=== PATIENT | female | born 1985 | race Hispanic/Latino ===

== ENCOUNTER 2016-06-22 08:07 | Emergency (ER) | payer OTHER ==
[~2016-06-22] VITALS: Ht 152.4 cm; Wt 64.4 kg
[~2016-06-22 08:07] MED LIST: BENZONATATE200 M1 PO; CYCLOBENZAPRINE5 M2 PO; DELTASONE20 MG PO; GUAIFENESIN-COD10 ML PO; LO LOESTRIN FE1 EACH PO; MOBIC15 M1 PO; PERCOCET 325 MG1 TA2 PO; PROVENTIL HFA6.7 GM INH; TRAMADOL HCL50 M1 PO; TRAMADOL50 MG PO; ZITHROMAX250 M2 PO; ZOFRAN ODT4 MG PO
--- NOTE | 2016-06-22 08:46 | ED GI/GU/ABDOMINAL COMPLAINT ---
History of Present Illness General Chief Complaint: Nausea, Vomiting, Diarrhea Stated Complaint: VOMITING Source: patient Exam Limitations: no limitations Vital Signs & Intake/Output Vital Signs & Intake/Output Vital Signs Date Time Temp Pulse Resp B/P Pulse O2 O2 Flow FiO2 Ox Delivery Rate 06/22 1544 98.0 78 16 86/54 100 Room Air 06/22 1422 88 16 90/54 98 Room Air 06/22 1328 82 16 86/44 97 Room Air 06/22 1320 98.1 93 16 82/52 99 Room Air 06/22 1211 90 16 96/58 99 Room Air 06/22 1023 98.0 88 18 89/54 99 Room Air 06/22 0817 97.6 118 20 111/74 99 Room Air Room Air Allergies Coded Allergies: NO KNOWN ALLERGIES (N) (01/10/12) Reconcile Medications Albuterol Sulfate (Proventil Hfa) 6.7 GM HFA.AER.AD 2 PUF INH Q4 sob/cough Azithromycin (Zithromax) 250 MG TABLET 1 DP PO AD bronchitis 2 the first day followed by 1 for days 2-5 Benzonatate 200 MG CAPSULE 1 CAP PO TIDPRN COUGH Hydrocodone/Acetaminophen ([place] 5-325 Tablet) 5 MG-325 MG TABLET 1-2 TAB PO Q4-6 PRN PRN PAIN Norethindrone-E.estradiol-Iron (Lo Loestrin Fe 1-10 Tablet) 1 EACH TABLET 1 TAB PO DAILY BC (Reported) Prednisone (Deltasone) 20 MG TABLET 1 TAB PO BID BRONCHITIS Prochlorperazine Maleate (Compazine) 10 MG TABLET 1 TAB PO BID PRN NAUSEA Robitussin AC (Guaifenesin-Codeine Syrup) 10 ML LIQUID 5-10 ML PO Q6P PRN COUGH Triage Note: PT TO ED WITH C/O "I HAD URINARY BURNING I WENT TO [place] AND THEY DIDN'T FIND ANYTHING, THEN I FOLLOWED UP WITH MY PMD AND I HAD BACTERIA IN THE URINE, PUT ON ANTIBIOTIC X 3 DAYS, THE PAIN GOT BETTER, NOW THE PAIN IS TO LEFT BACK WHEN I BREATHE AND I'M SORE FROM THROWING UP". Triage Nurses Notes Reviewed? yes ? N Is pt currently ? No Onset: Gradual Duration: worse persistent since (2 DAYS) Timing: recent history Quality/Severity: cramping, sharpness Location: left lower quadrant Radiation: flank Activities at Onset: none Prior Abdominal Problems: similar symptoms Past Sexual History: Unobtainable at this time HPI: Patient is a 31-year-old female presenting to the emergency department with chief complaint of left lower quadrant pain that thing going on intermittently for the past week or 2. Worse the past 2 days. She was seen and evaluated at another facility with the same pain, they did a transabdominal ultrasound and blood work and told her everything looked well and she should follow up with her GI doctor. Patient reports a left-sided the pain worsen. Positive nausea with vomiting. She reports she cannot keep anything down. Denies diarrhea. No blood in the vomit. Positive tactile fevers and chills. Just reports urinary frequency urgency and dysuria. She was put on antibiotics for 3 days and follow -up with her primary care physician. Denies taking anything for pain at home. (NENA DOWNEY) Past History Travel History Traveled to [place] past 21 day No Medical History Any Pertinent Medical History? 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 No (NENA DOWNEY) Review of Systems Review of Systems Constitutional: Reports: chills, fever, malaise. Comments Review of systems: See HPI, All other systems negative. Constitutional, weight loss HEENT: No visual changes no sore throat no congestion Cardiovascular: No chest pain ,palpitation , orthopnea or ankle swelling Skin, no jaundice no rashes Respiratory: No dyspnea cough sputum or hemoptysis GI: No diarrhea : Positive dysuria, denies hematuria Muscle skeletal: no back pain, no neck pain, Neurologic: No numbness no confusion Psych: No stress anxiety or depression,. Heme/endocrine: No bruising no bleeding no polyuria or polydipsia Immunology: No splenectomy or history of AIDS (NENA DOWNEY) Physical Exam Physical Exam General Appearance: well developed/nourished, alert, awake, mild distress Gastrointestinal: normal bowel sounds, soft, tenderness Comments: Well-developed well-nourished person in mild distress HEENT: Pupils equally round and reactive to light and accommodation. Nose is atraumatic. Neck: Normal inspection Back: Nontender, no CVA tenderness. Full range of motion Cardiovascular: Regular rate and rhythms no murmurs rubs or gallops, normal JVP Respiratory: Chest nontender. No respiratory distress.breath sounds clear to auscultation bilaterally Abdomen: Soft, tender to palpation in the left lower quadrant, left suprapubic pain, nondistended, no appreciable organomegaly. Normal bowel sounds. No ascites Extremity: No edema Neuro: Alert oriented x3 Skin: No appreciable rash on exposed skin, skin is warm and dry. Psych: Mood and affect is normal, memory and judgment is normal. Core Measures ACS in differential dx? No Severe Sepsis Present: No Septic Shock Present: No (MAX GRACIA,NENA) Progress Differential Diagnosis: UTI/pyelo, KIDNEY STONE, PYELONEPHRITIS, HYDRONEPHROSIS, OVARIAN TORSION, OVARIAN CYSTS, FIBROIDS, DIVERTICULITIS Plan of Care: Orders Procedure Date/time Status Regular Diet 06/22 D Active MISTAKE 06/22 1548 Active RAPID VIRAL INFLUENZA A 06/22 1548 Complete THROAT CULTURE W/QUICK STREP 06/22 1548 Active URINE 06/22 0844 Complete LIPASE 06/22 0844 Complete LACTIC ACID 06/22 0844 Complete COMPREHENSIVE METABOLIC PANEL 06/22 0844 Complete CBC WITHOUT DIFFERENTIAL 06/22 0844 Complete AMYLASE 06/22 0844 Complete URINALYSIS 06/22 0821 Complete Current Medications Sig/Tata Start time Last Medication Dose Stop Time Status Admin Sodium Chloride 1,000 ML BOLUS ONE 06/22 1600 CAN (Normal Saline 0.9%) 06/22 1659 Laboratory Tests 06/22/16 1144: Lactic Acid Cancelled 06/22/16 0900: Urine Test NEGATIVE 06/22/16 0900: Urinalysis LIGHT H, Urine Color YEL, Urine Clarity CLEAR, Urine pH 7.5, Ur Specific [place] 1.020, Urine Protein NEG, Urine Ketones NEG, Urine Nitrite NEG, Urine Bilirubin NEG, Urine Urobilinogen 0.2, Ur Leukocyte Esterase NEG, Ur Microscopic SEDIMENT EXAMINED, Urine RBC 5-10 H, Urine WBC RARE, Ur Epithelial Cells MANY H, Urine Mucus MOD H, Urine Hemoglobin SMALL H, Urine Glucose NEG 06/22/16 0853: Anion Gap 8, Estimated GFR > 60, BUN/Creatinine Ratio 25.0, Glucose 108 H, Lactic Acid 1.0, Calcium 8.8, Total Bilirubin 0.5, AST 34, ALT 56 H, Alkaline Phosphatase 73, Total Protein 7.4, Albumin 4.4, Globulin 3.0, Albumin/Globulin Ratio 1.5, Amylase 86, Lipase 91, CBC w Diff NO MAN DIFF REQ, RBC 4.01 L, MCV 89.4, MCH 30.8, RDW 12.8, MPV 7.5, Gran % 73.5, Lymphocytes % 8.2 L, Monocytes % 16.5 H, Eosinophils % 1.3, Basophils % 0.5, Absolute Granulocytes 3.6, Absolute Lymphocytes 0.4 L, Absolute Monocytes 0.8 H, Absolute Eosinophils 0.1 , Absolute Basophils 0, PUBS MCHC 34.4 Diagnostic Imaging: Viewed by Me: CT Scan. Discussed w/RAD: CT Scan. Radiology Impression: PATIENT: YONY MCRAE PRESENT AGE: 31 PATIENT ACCOUNT NO: [id number] : 86 LOCATION: [facility] ORDERING PHYSICIAN: NENA GRACIA SERVICE DATE: 06/22/16 EXAM TYPE: CAT - CT ABD & PELVIS W/O IV CONTRAS EXAMINATION: CT ABDOMEN AND PELVIS WITHOUT CONTRAST CLINICAL INFORMATION: Left flank pain. COMPARISON: 11/01/2014, 2012. Pelvic ultrasound 11/01/2014. TECHNIQUE: Multidetector volumetric imaging was performed from the superior aspect of the liver through the pubic symphysis. Sagittal and coronal reformatted images were obtained on the technologist's workstation. DLP: 238.94 mGy-cm. FINDINGS: LUNG BASES: The visualized lung bases are unremarkable. LIVER, GALLBLADDER, AND BILIARY TREE: The liver is normal in size, shape, and attenuation. No focal hepatic lesion or biliary ductal dilatation is present. The gallbladder is unremarkable with no evidence of radiopaque gallstones, gallbladder wall thickening, or obvious pericholecystic inflammatory changes. PANCREAS: Unremarkable. SPLEEN: Unremarkable. ADRENAL GLANDS: Unremarkable. KIDNEYS AND URETERS: The kidneys are normal in size, shape , and attenuation. No hydronephrosis, hydroureter, or calculi seen. No perinephric stranding. BLADDER: Partially distended which limits evaluation. No definite abnormalities. GASTROINTESTINAL TRACT: The small and large bowel are unremarkable. The appendix is not well seen. There are no inflammatory changes within the right lower quadrant. ABDOMINAL WALL: No significant hernia is appreciated. LYMPH NODES: Normal. VASCULAR: Unremarkable. PELVIC VISCERA: Coarse heterogeneous calcifications within the uterus. Lobulated enlarged appearance of the uterus. No pelvic free fluid. OSSEOUS STRUCTURES: Unremarkable. IMPRESSION: 1. No evidence of acute abdominal or pelvic abnormality. 2. Coarse calcifications within the uterus which is lobulated and enlarged consistent with previously described fibroids. DICTATED BY: LAM DAIGLE MD DATE/TIME DICTATED: 06/22/16956 SALESPERSON HANDBAGS:MISTY DATE/TIME TRANSCRIBED:06/22/16956 CONFIDENTIAL, DO NOT COPY WITHOUT APPROPRIATE AUTHORIZATION. <Electronically signed in Other Vendor System> SIGNED BY: LAM DAIGLE MD 06/22/16 1010, PATIENT: YONY MCRAE PRESENT AGE: 31 PATIENT ACCOUNT NO: [id number] : 86 LOCATION: [facility] ORDERING PHYSICIAN: NENA GRACIA SERVICE DATE: 06/22/16-1026 EXAM TYPE: US - US-TRANSVAGINAL EXAMINATION: US PELVIS COMPLETE CLINICAL INFORMATION: Left lower quadrant pain. Assess for ovarian torsion. COMPARISON: CT scan of the abdomen and pelvis obtained earlier 06/22/2016. Report of pelvic ultrasound 11/01/2014. TECHNIQUE: Transabdominal and transvaginal imaging of the pelvis was performed. FINDINGS: The uterus is of normal size and measures 7.8 x 4.5 x 5.4 cm. Is a volume of 98 mL. It is retroverted. A regular homogeneous endometrium is identified measuring 0.6 cm. The cervical length is 2.7 cm. FIBROIDS: There is one fibroid. Location: Exophytic and fundal. Size: It measures 8.2 x 5.2 x 6.9 cm increased from 5.2 x 4.1 x 5.0 cm. Fibroid characteristics: It is heterogenous. There are areas of increased echogenicity with posterior shadowing consistent with calcifications. Both ovaries are of normal size and echogenicity. The right measures 3.3 x 1.9 x 2.7 cm for a volume of 8.6 mL; previously measured 3.7 x 2.0 x 3.1 cm for a volume of 11.8 mL. There are multiple follicles. The left measures 3.3 x 1.6 x 2.0 cm for a volume of 5.5 mL, previously 2.4 x 1.7 x 1.7 cm for a volume of 3.7 mL. There are multiple follicles. Vascularity to both ovaries is normal. There is trace pelvic free fluid. IMPRESSION: 1. The study demonstrates an enlarging uterine fibroid with calcifications. 2. The ovaries appear normal with normal vascularity. 3. There is trace pelvic fluid. Initial ED EKG: none Comments: 06/22/2016 9:37:51 AM on arrival patient mild distress, vital stable. Patient does have significant tenderness to palpation in left lower quadrant, no rebound tenderness. 06/22/2016 10:37:21 AM and reevaluation patient was informed of all labs and imaging study. Patient still in significant pain. Patient is not hypotensive. Another liter of IV fluids initiated. We will send patient vaginal ultrasound to rule out ovarian torsion. 06/22/2016 1:11:31 PM patient was informed of ultrasound results. She'll follow- up with her GI. She'll be started on pain medication, nausea medication. Patient nontoxic. Vital stable stable. Blood pressure seems to be rising with IV fluids. 06/22/2016 4:27:34 PM orthostatics are negative. This and feeling well. Negative fluid negative strep. Patient will be discharged home. Discussed with he agrees with plan. (MAX GRACIA,NENA) Departure Departure Time of Disposition: 1311 Disposition: HOME OR SELF CARE Condition: Stable Clinical Impression Primary Impression: Abdominal pain Qualifiers: Abdominal location: left lower quadrant Qualified Code: R10.32 - Left lower quadrant pain Secondary Impressions: Hypotension Qualifiers: Hypotension type: unspecified hypotension type Qualified Code: I95.9 - Hypotension, unspecified Referrals: MARTHA CAMPOS APRN (PCP/Family) Additional Instructions: Follow-up with Dr. Crandall call to make an appointment. Increase fluids. Take Vicodin as prescribed for severe pain. Take Compazine as prescribed for nausea. Increase fluids. Departure Forms: Customer Survey General Discharge Information Prescriptions: Current Visit Scripts Hydrocodone/Acetaminophen ([place] 5-325 Tablet) 1-2 TAB PO Q4-6 PRN PRN PAIN #10 TAB Prochlorperazine Maleate (Compazine) 1 TAB PO BID PRN NAUSEA #10 TAB (NENA DOWNEY) PA/DRUM ATTENDANT Co-Sign Statement Statement: ED Attending supervision documentation- [] I saw and evaluated the patient. I have also reviewed all the pertinent lab results and diagnostic results. I agree with the findings and the plan of care as documented in the PA's/DRUM ATTENDANT's documentation. x I have reviewed the ED Record and agree with the PA's/DRUM ATTENDANT's documentation. [] Additions or exceptions (if any) to the PAs/DRUM ATTENDANT's note and plan are summarized below: [] (CHARLIE RIDLEY,RODGER)
[2016-06-22 09:02] LABS: ABSOLUTE BASOPHIL COUNT 0 /CUMM (0.0-0.2); ABSOLUTE EOSINOPHIL COUNT 0.1 /CUMM (0.0-0.7); ABSOLUTE GRANULOCYTE CT 3.6 /CUMM (1.4-6.5); ABSOLUTE LYMPH COUNT 0.4 /CUMM (1.2-3.4); ABSOLUTE MONOCYTE COUNT 0.8 /CUMM (0.10-0.60); BASOPHIL % 0.5 % (0.0-2.0); EOSINOPHIL % 1.3 % (0-5); GRANULOCYTE % 73.5 % (42.2-75.2); HEMATOCRIT 35.9 % (37-47); MEAN CORPUSCULAR HGB 30.8 PG (27.0-31.0); MEAN CORPUSCULAR HGB CONC 34.4 G/DL (33.0-37.0); MEAN CORPUSCULAR VOLUME 89.4 FL (81.0-99.0); MEAN PLATELET VOLUME 7.5 FL (7.4-10.4); PLATELET COUNT 307 /CUMM (130-400); RBC DISTRIBUTION WIDTH 12.8 % (11.5-14.5); RED BLOOD CELL CT 4.01 /CUMM (4.20-5.40); WHITE BLOOD CELL COUNT 4.9 /CUMM (4.8-10.8)
--- NOTE | 2016-06-22 10:10 | CT SCAN REPORT ---
EXAMINATION: CT ABDOMEN AND PELVIS WITHOUT CONTRAST CLINICAL INFORMATION: Left flank pain. COMPARISON: 11/01/2014, 02/20/2013. Pelvic ultrasound 11/01/2014. TECHNIQUE: Multidetector volumetric imaging was performed from the superior aspect of the liver through the pubic symphysis. Sagittal and coronal reformatted images were obtained on the technologist's workstation. DLP: 238.94 mGy-cm. FINDINGS: LUNG BASES: The visualized lung bases are unremarkable. LIVER, GALLBLADDER, AND BILIARY TREE: The liver is normal in size, shape, and attenuation. No focal hepatic lesion or biliary ductal dilatation is present. The gallbladder is unremarkable with no evidence of radiopaque gallstones, gallbladder wall thickening, or obvious pericholecystic inflammatory changes. PANCREAS: Unremarkable. SPLEEN: Unremarkable. ADRENAL GLANDS: Unremarkable. KIDNEYS AND URETERS: The kidneys are normal in size, shape, and attenuation. No hydronephrosis, hydroureter, or calculi seen. No perinephric stranding. BLADDER: Partially distended which limits evaluation. No definite abnormalities. GASTROINTESTINAL TRACT: The small and large bowel are unremarkable. The appendix is not well seen. There are no inflammatory changes within the right lower quadrant. ABDOMINAL WALL: No significant hernia is appreciated. LYMPH NODES: Normal. VASCULAR: Unremarkable. PELVIC VISCERA: Coarse heterogeneous calcifications within the uterus. Lobulated enlarged appearance of the uterus. No pelvic free fluid. OSSEOUS STRUCTURES: Unremarkable. IMPRESSION: 1. No evidence of acute abdominal or pelvic abnormality. 2. Coarse calcifications within the uterus which is lobulated and enlarged consistent with previously described fibroids.
--- NOTE | 2016-06-22 12:44 | ULTRASOUND REPORT ---
EXAMINATION: US PELVIS COMPLETE CLINICAL INFORMATION: Left lower quadrant pain. Assess for ovarian torsion. COMPARISON: CT scan of the abdomen and pelvis obtained earlier 06/22/2016. Report of pelvic ultrasound 11/01/2014. TECHNIQUE: Transabdominal and transvaginal imaging of the pelvis was performed. FINDINGS: The uterus is of normal size and measures 7.8 x 4.5 x 5.4 cm. Is a volume of 98 mL. It is retroverted. A regular homogeneous endometrium is identified measuring 0.6 cm. The cervical length is 2.7 cm. FIBROIDS: There is one fibroid. Location: Exophytic and fundal. Size: It measures 8.2 x 5.2 x 6.9 cm increased from 5.2 x 4.1 x 5.0 cm. Fibroid characteristics: It is heterogenous. There are areas of increased echogenicity with posterior shadowing consistent with calcifications. Both ovaries are of normal size and echogenicity. The right measures 3.3 x 1.9 x 2.7 cm for a volume of 8.6 mL; previously measured 3.7 x 2.0 x 3.1 cm for a volume of 11.8 mL. There are multiple follicles. The left measures 3.3 x 1.6 x 2.0 cm for a volume of 5.5 mL, previously 2.4 x 1.7 x 1.7 cm for a volume of 3.7 mL. There are multiple follicles. Vascularity to both ovaries is normal. There is trace pelvic free fluid. IMPRESSION: 1. The study demonstrates an enlarging uterine fibroid with calcifications. 2. The ovaries appear normal with normal vascularity. 3. There is trace pelvic fluid.
[2016-06-22] MEDS ORDERED: COMPAZINE10 M1 PO (13:14)
[2016-06-22] MEDS ORDERED: NORCO 5-325 TA1 EACH PO (13:14)
[2016-06-22 16:39] VITALS: BP 98/62
== END 2016-06-22 16:40 ==
LOC: ERH 08:07
PROVIDERS: Physician Assistant
DX: R10.32 Left lower quadrant pain (principal); I95.9 Hypotension, unspecified
CPT/HCPCS: 74176; 81001; 81025; 87804; 87804-59; 96361; 96365; 96375; J0131; J1885; J2405; J2550; J2765

== ENCOUNTER 2017-11-01 08:35 | Emergency (ER) | payer OTHER ==
[~2017-11-01] VITALS: Ht 152.4 cm; Wt 59.9 kg
[~2017-11-01 08:35] MED LIST changes: +COMPAZINE10 M1 PO; +NORCO 5-325 TA1 EACH PO
--- NOTE | 2017-11-01 09:16 | ED INFLUENZA/URI COMPLAINT ---
History of Present Illness General Chief Complaint: General Adult Stated Complaint: COUGHING UP BLOOD Source: patient, old records Exam Limitations: no limitations Vital Signs & Intake/Output Vital Signs & Intake/Output Vital Signs Date Time Temp Pulse Resp B/P B/P Pulse O2 O2 Flow FiO2 Mean Ox Delivery Rate 11/01 1049 98.4 76 18 110/88 98 Room Air 11/01 0950 96 11/01 0913 98 Room Air 11/01 0837 96.9 99 18 109/61 96 Room Air Allergies Coded Allergies: NO KNOWN ALLERGIES (N) (01/10/12) Reconcile Medications Albuterol Sulfate (Proair Hfa) 90 MCG HFA.AER.AD 2 PUF INH Q4-6 PRN PRN bronchospasm Amoxicillin 500 MG TABLET 1 TAB PO TID bronchitis Guaifenesin/Dextromethorphan (Robitussin Cough-Chest Dm Liq) 100 MG-5 MG/5 ML LIQUID 10 ML PO Q6P PRN cough Oxymetazoline HCl (Afrin) 0.05 % SPRAY 2 SPRAY NASB BID sinusitis Prednisone 20 MG TABLET 1 TAB PO BID bronchospasm Triage Note: 32 Y/O FEMALE C/O COUGH AND URI SYMPTOMS X 4 DAYS; STATES TODAY SHE "COUGH UP BLOOD AND I CAN TASTE THE BLOOD". AFEBRILE. Triage Nurses Notes Reviewed? yes Onset: Last week Duration: day(s):, constant, continues in ED Timing: recent history Severity: moderate Prior Episodes/Possible Cause: illness exposure No Modifying Factors: none Associated Symptoms: cough, sore throat LMP (ages 10-50): unknown : No Patient currently breastfeeds: No HPI: 4 days prior to admission patient complains of sore throat productive cough of yellow sputum with wheezing. Several hours prior to admission she continued with symptoms with blood in sputum. She denies fever chills chest pain shortness of breath headache dysuria rash bleeding nausea vomiting diarrhea abdominal pain. Past History Travel History Traveled to [place] past 21 day No Medical History Any Pertinent Medical History? 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 No Review of Systems Review of Systems Constitutional: Reports: no symptoms. EENTM: Reports: see HPI, throat pain. Respiratory: Reports: see HPI, cough, sputum production, wheezing. Cardiovascular: Reports: no symptoms. GI: Reports: no symptoms. Genitourinary: Reports: no symptoms. Musculoskeletal: Reports: no symptoms. Skin: Reports: no symptoms. Neurological/Psychological: Reports: no symptoms. Hematologic/Endocrine: Reports: no symptoms. Immunologic/Allergic: Reports: no symptoms. All Other Systems: Reviewed and Negative Physical Exam Physical Exam General Appearance: well developed/nourished, alert, awake, anxious, mild distress Head: atraumatic, normal appearance Eyes: Bilateral: normal appearance, PERRL, EOMI. Ears, Nose, Throat: normal ENT inspection, moist mucous membrane Neck: normal inspection, supple, full range of motion, trachea midline, lymphadenopathy (R), lymphadenopathy (L), no midline tenderness Respiratory: chest non-tender, no respiratory distress, wheezing Cardiovascular: regular rate/rhythm, normal peripheral pulses, norml femoral pulses equa Peripheral Pulses: 4+ carotid (R), 4+ carotid (L) Gastrointestinal: normal bowel sounds, soft, non-tender, no organomegaly Back: normal inspection, normal range of motion, no vertebral tenderness Extremities: normal inspection, normal capillary refill, normal range of motion, no edema Neurologic/Psych: no motor/sensory deficits, awake, alert, oriented x 3, normal gait, normal mood/affect, twisting operator II-XII nml as tested Reflexes: 2+: bicep (R), bicep (L). Skin: intact, normal color, warm/dry Lymphatic: adenopathy Core Measures Sepsis Present: No Sepsis Focused Exam Completed? No Progress Differential Diagnosis: influenza, pneumonia, pharyngitis, sinusitis Plan of Care: Orders Procedure Date/time Status AEROSOL (GEN) 11/01 0941 Complete Diagnostic Imaging: Viewed by Me: Radiology Read. Discussed w/RAD: Radiology Read. Initial ED EKG: none Departure Departure Time of Disposition: 103 Disposition: HOME OR SELF CARE Condition: Stable Clinical Impression Primary Impression: Bronchitis Secondary Impressions: Sinusitis Referrals: Mildred Funez DO (PCP/Family) Departure Forms: Customer Survey General Discharge Information RELEASE- WORK Prescriptions: Current Visit Scripts Prednisone 1 TAB PO BID #10 TAB Amoxicillin 1 TAB PO TID #30 TAB Oxymetazoline HCl (Afrin) 2 SPRAY NASB BID #30 ML Guaifenesin/Dextromethorphan (Robitussin Cough-Chest Dm Liq) 10 ML PO Q6P PRN cough #240 ML Albuterol Sulfate (Proair Hfa) 2 PUF INH Q4-6 PRN PRN bronchospasm #1 INHAL
--- NOTE | 2017-11-01 10:16 | RADIOLOGY REPORT ---
EXAMINATION: XR CHEST CLINICAL INFORMATION: Productive cough with blood. COMPARISON: None TECHNIQUE: 2 views of the chest were obtained. FINDINGS: Both lungs are fairly well-expanded and clear. The heart size and pulmonary vascularity is normal. No gross bony abnormality seen. IMPRESSION: Unremarkable chest exam.
[2017-11-01] MEDS ORDERED: AFRIN30 ML NASB (10:35)
[2017-11-01] MEDS ORDERED: PREDNISONE20 M1 PO (10:35)
[2017-11-01] MEDS ORDERED: AMOXICILLIN500 M3 PO (10:35)
[2017-11-01] MEDS ORDERED: ROBITUSSIN COU237 M1 PO (10:36)
[2017-11-01] MEDS ORDERED: PROAIR HFA8.5 GM INH (10:36)
[2017-11-01 10:49] VITALS: BP 110/88
== END 2017-11-01 10:49 ==
LOC: ERH 08:35
DX: J40 Bronchitis, not specified as acute or chronic (principal); J32.9 Chronic sinusitis, unspecified; Z87.891 Personal history of nicotine dependence
CPT/HCPCS: 1263; 71046